=== PATIENT | female | born 1995 | race Native Hawaiian/Other Pacific Islander ===

== ENCOUNTER 2018-06-01 17:12 | Emergency (ER) | payer OTHER ==
[~2018-06-01] VITALS: Ht 157.5 cm; Wt 47.6 kg
[2018-06-01 17:42] LABS: PLATELET COUNT 223 K/uL (152-353)
[2018-06-01 17:54] LABS: POTASSIUM 3.8 mmol/L (3.6-5.2)
[2018-06-01 18:00] VITALS: BP 104/59; TEMP 97.5
== END 2018-06-01 18:38 | disposition home or self-care (01) ==
LOC: ED 17:12
PROVIDERS: Family Medicine
DX: R11.2 Nausea with vomiting, unspecified (principal); R50.9 Fever, unspecified; J11.1 Influenza due to unidentified influenza virus with other respiratory manifestations
CPT/HCPCS: 36415; 80053; 82150; 83690; 85027; 87502; 96361; 96374; 96375; 99284; J1885; J2405